=== PATIENT | male | born 1955 | race Caucasian/White ===

== ENCOUNTER 2020-11-24 02:29 | Inpatient (IN) | payer OTHER ==
[2020-11-24] VITALS (20 sets, daily range): BP systolic 96–168; BP diastolic 58–100
[~2020-11-24] VITALS: Ht 180.3 cm; Wt 107.0 kg
[2020-11-24] MEDS ORDERED: LANTUS100 UNIT/M SUBQ (02:46)
[2020-11-24] MEDS ORDERED: MINIPRESS2 MG PO (02:47)
[2020-11-24] MEDS ORDERED: VALIUM2 MG PO (02:47)
[2020-11-24] MEDS ORDERED: ASA81BEC PO (02:48)
[2020-11-24] MEDS ORDERED: PAXIL40 MG PO (02:48)
[2020-11-24] MEDS ORDERED: VALSARTAN320 MG PO (02:49)
[2020-11-24] MEDS ORDERED: OMEPRAZOLE 20 M20 M1 PO (02:49)
[2020-11-24] MEDS ORDERED: LOPRESSOR50 MG PO (02:49)
[2020-11-24 02:53] LABS: ABSOLUTE NEUTROPHILS 4.8 thou/uL (1.4-8.2); BASOPHILS 0.8 % (0.0-2.0); EOSINOPHILS 1.7 % (0.0-3.0); HEMATOCRIT 36.7 % (42.0-52.0); HEMOGLOBIN 12.3 gm/dL (14.0-18.0); MCH 26.7 pg (26.0-34.0); MCHC 33.6 g/dL (28.0-37.0); MCV 79.4 fL (80.0-100.0); MONOCYTES 8.7 % (1.0-8.0); PLATELET COUNT 291 thou/uL (150-400); POLYS 57.8 % (36.0-66.0); RBC 4.62 mil/uL (4.50-6.00); RDW 15.8 % (10.5-14.5); WBC 8.4 thou/uL (4.0-11.0)
[2020-11-24 02:59] LABS: CALCIUM 7.8 mg/dL (8.5-10.1); CREATININE 1.1 mg/dL (0.7-1.3); POTASSIUM 3.1 mmol/L (3.5-5.1)
[2020-11-24 03:09] LABS: ALBUMIN 3.4 g/dL (3.4-5.0); TOTAL BILIRUBIN 0.2 mg/dL (0.2-1.0)
[2020-11-24 03:10] LABS: APTT 24.1 Seconds (24.5-32.8); INR 0.97; PROTIME 10.6 Seconds (10.5-12.1)
[2020-11-24 03:12] LABS: TROPONIN-I 1.99 ng/mL (<0.06)
[2020-11-24] MEDS ORDERED: LIPITOR 20 MG T20 M1 PO (05:50)
[2020-11-24] MEDS ORDERED: VITAMIN D3125 MC2 PO (05:53)
--- NOTE | 2020-11-24 08:24 | NUR ---
PATIENT IS A NEW ADMISSION TO THE UNIT THIS SHIFT. HE ARRIVED VIA BED FROM [facility]. PATIENT IS ALERT AND ORIENTED AND ABLE TO PARTICIPATE IN CARE AND CALL APPROPRIATELY FOR NEEDS. PATIENT IS CURRENTLY ON DOPAMINE AND INTEGRILIN GTTS TO GOOD AFFECT. PATIENTS ONLY COMPLAINT OF PAIN IS CHRONIC IN NATURE. MEDICATIONS RECONCILED WITH ADMISSION MOSTLY COMPLETED. PATIENTS GROIN SITE CLEAN, DRY, AND INTACT WITH NO EVIDENCE OF HEMATOMA. DETAILED REPORT GIVEN TO ONCOMING NURSE.
--- NOTE | 2020-11-24 09:53 | EKG ---
[address] [address] ELECTROCARDIOGRAM REPORT Name: MAX RAMIREZ [place] Room #: 208-P ADM IN M.R.#: [id number] Admission: 11/24/20 Attend Phys: Pk Holland Discharge: Date of : 59 Report #: [id number] [facility] ED Test Date: 2020-11-24 Test Time: 02:35:01 Pat Name: MAX RAMIREZ Department: Room: 208 Gender: M Senior Clinical Data Analyst: JAI : 1955 Requested By: Trevon Call Order Number: [id number] MD: Kain Moore Measurements Intervals [place] Rate: 68 P: 27 IL: 142 QRS: 8 QRSD: 117 T: 81 QT: 412 QTc: 439 Interpretive Statements Sinus rhythm Nonspecific intraventricular conduction delay Inferior infarct, acute (LCx) Compared to ECG 07/01/2007 07:29:16 Intraventricular conduction delay now present Myocardial infarct finding still present Electronically Signed On 11-24-2020 9:52:53 CDT by Kain Moore [email or web address] <ELECTRONICALLY SIGNED> By: Kain Moore MD, [facility] 11/24/20 0952 [phone] Kain Moore MD, [facility] /[facility]
--- NOTE | 2020-11-24 11:56 | 2DMMODE ---
[facility] [place] [address] 2 D/M-MODE ECHOCARDIOGRAM Name: JAMESMAX Vides Room #: 208-P ADM IN M.R.#: [id number] Admission: 11/24/20 Attend Phys: Pk Holland Discharge: Date of : 59 Report #: [id number] THIS REPORT FOR: cc: Gigi Rosas MD, William R. MD Lammoglia, Francisco J. MD ~ APPROVED REPORT Study performed: 11/24/2020 07:43:49 EXAM: Comprehensive 2D, Doppler, and color-flow Echocardiogram Patient Location: Bedside Room #: 208 Status: on-call BSA: 0.86 HR: 58 bpm BP: 128/82 mmHg Rhythm: NSR Other Information Study Quality: Adequate Technically limited study due to inability to position patient post cath. Indications Diabetes CAD Hypertension/HDD STEMI, HLD 2D Dimensions RVDd: 31.15 mm IVSd: 13.01 (7-11mm) LVOT Diam: 18.45 (18-24mm) LVDd: 54.22 mm PWd: 14.16 (7-11mm) Ascending Ao: 33.12 (22-36mm) LVDs: 42.38 (25-40mm) Aortic Root: 30.76 mm IVC: 16.00 mm Volumes Left Atrial Volume (Systole) Single Plane 4CH: 56.86 mL Single Plane 2CH: 58.55 mL LA ESV Index: 76.00 mL/m2 Aortic Valve [facility] [address] [place] [address] 2 D/M-MODE ECHOCARDIOGRAM Name: MAX RAMIREZ Room #: 208-P [facility] IN ..#: [id number] Admission: 11/24/20 Attend Phys: Pk Al Discharge: Date of : 59 Report #: [id number] AoV Peak Reece.: 1.18 m/s AO Peak Gr.: 5.55 mmHg LVOT Max P.00 mmHg LVOT Max V: 1.00 m/s DARY Vmax: 2.27 cm2 Mitral Valve E/A Ratio: 2.0 MV Decel. Time: 280.18 ms MV E Max Reece.: 0.90 m/s MV A Reece.: 0.44 m/s MV PHT: 81.25 ms IVRT: 114.19 ms Pulmonary Valve PV Peak Reece.: 0.92 m/s PV Peak Gr.: 3.40 mmHg Pulmonary Vein P Vein S: 0.43 m/s P Vein A: 0.24 m/s P Vein D: 0.54 m/s P Vein A Dur.: 138.4 msec P Vein S/D Ratio: 0.80 Tricuspid Valve RAP Estimate: 5.00 mmHg Left Ventricle The left ventricle is normal size. Mild to moderate concentric left ventricular hypertrophy. The left ventricular systolic function is normal. The left ventricular ejection fraction is within the normal range. LVEF is 55-60%. The left ventricular diastolic function is normal. Right Ventricle The right ventricle is normal size. The right ventricular systolic function is normal. Atria Left atrium is dilated. The right atrium size is normal. Aortic Valve The aortic valve is normal in structure. No aortic regurgitation is present. There is no aortic valvular stenosis. Mitral Valve The mitral valve is normal in structure. Mild to moderate mitral regurgitation. No evidence of mitral valve stenosis. [facility] [address] [place] [address] 2 D/M-MODE ECHOCARDIOGRAM Name: JAMESMAX M Room #: 208-P [facility] IN M.R.#: [id number] Admission: 11/24/20 Attend Phys: Pk Al Discharge: Date of : 59 Report #: [id number] Tricuspid Valve The tricuspid valve is normal in structure. Trace tricuspid regurgitation. Unable to assess PA pressure. Pulmonic Valve The pulmonary valve is normal in structure. Trace pulmonic regurgitation. Great Vessels The aortic root is normal in size. IVC is normal in size and collapses >50% with inspiration. Pericardium There is no pericardial effusion. <Conclusion> The left ventricle is normal size. Mild to moderate concentric left ventricular hypertrophy. LVEF is 55-60%. Left atrium is dilated. The aortic valve is normal in structure. The mitral valve is normal in structure. Mild to moderate mitral regurgitation. The tricuspid valve is normal in structure. Trace tricuspid regurgitation. Unable to assess PA pressure. The pulmonary valve is normal in structure. Trace pulmonic regurgitation. The aortic root is normal in size. There is no pericardial effusion. <ELECTRONICALLY SIGNED> By: Oleg Zazueta MD 11/24/20 1156 1156 1156 Oleg Zazueta MD /INF
[2020-11-24 12:31] LABS: CHOLESTEROL 146 mg/dL (<200); HDL CHOLESTEROL 26 mg/dL (>40); LDL CHOLESTEROL 62 mg/dL (<100); TC:HDL 5.6 Ratio (Not establshd); TRIGLYCERIDE 292 mg/dL (<150); VLDL 58 mg/dL (<40)
--- NOTE | 2020-11-24 17:19 | NUR ---
RECEIVED THE PATIENT CONSICOUS AND ORIENTED.NOT IN PAIN OR DISTRESS.WITH ONGOING INTEGRILLIN AND NITROGLYERIN DRIP.WITH RIGHT GROIN C/D/I.COMPLAINED OF HEMORRHOID AND HAD MINIMAL BLEEDING WHEN HE WENT TO THE BATHROOM, SEEN BY DR. ROY, ACCORDING TO HIM TO CONTINUE INTEGRIILIN.INFORMED DR. ROY WELL OF THE HIGH TROPONIN RESULT.ALL NEEDS ATTENDED.
[2020-11-25 04:29] VITALS: BP 116/72
--- NOTE | 2020-11-25 05:14 | NUR ---
Patient making slow progress towards outcome goals. Vutal signs and rhythm stable. No chest pains, did have some left arm pain that is now gone. Integrillin at 2 mcg/kg/min at17 ml/hr and Nitro drip at 16 ml/hr. Right groin soft, dressing dry and intact. Awaiting consult with Dr. Mina. Up to bathroom with standby assist with out difficulty.
[2020-11-25 05:36] LABS: GLYCOHEMOGLOBIN (HGB A1C) 6.1 % (4.8-5.6)
[2020-11-25 06:02] LABS: ALBUMIN 3.5 g/dL (3.4-5.0); ANION GAP 9 mmol/L (7-16); BUN 14 mg/dL (7-18); CALCIUM 8.7 mg/dL (8.5-10.1); CHLORIDE 104 mmol/L (98-107); CHOLESTEROL 138 mg/dL (<200); CO2 27 mmol/L (21-32); GLUCOSE 101 mg/dL (74-106); HDL CHOLESTEROL 30 mg/dL (>40); LDL CHOLESTEROL 73 mg/dL (<100); SGOT 60 U/L (15-37); SGPT 26 U/L (30-65); SODIUM 140 mmol/L (136-145); TC:HDL 4.6 Ratio (Not establshd); TOTAL BILIRUBIN 0.4 mg/dL (0.2-1.0); TOTAL PROTEIN 6.7 g/dL (6.4-8.2); TRIGLYCERIDE 178 mg/dL (<150); VLDL 36 mg/dL (<40)
[2020-11-25 06:03] LABS: SERUM ASSESSMENT Clear
[2020-11-25 07:48] VITALS: BP 103/70
[2020-11-25 11:59] VITALS: BP 96/63
[2020-11-25 15:31] VITALS: BP 114/68
--- NOTE | 2020-11-25 16:37 | NUR ---
PT IS AXOX4, PLEASANT. VSS, AFEBRILE, SR ON THE MONITOR. PT HAD INTEGRILIN AND NITRO GTT THIS AM. DR PANDYA CONSULTED, DR ROY CONSULTED. DISCUSSED CAREPLAN WITH PT. INTEGRILIN D/C THIS PM. WILL D/C NITRO IN AM AFTER 1ST DOSE IMDUR PER NURSING NOTES. PT DENIES CP, BUT HAS HAD SOME SHOULDER/NECK PAIN. POC IS TO CONTINUE WITH GTTS UNTIL D/C, CONTROL HEADACHES AND ADDITIONAL PAIN WITH RX. LOW FALL PRECAUTIONS IN PLACE. NO CONCERNS AT THIS TIME.
[2020-11-25 19:45] VITALS: BP 139/74
[2020-11-26 03:20] VITALS: BP 113/73
--- NOTE | 2020-11-26 04:50 | NUR ---
SLEPT PART OF SHIFT. UP AD CRISTIANE IN ROOM WITHOUT COMPLAINTS OF CHEST PAIN OR SHORTNESS OF AIR. REMAINS ON NTG GTT. WORKING ON GOALS AND PLAN OF CARE FOR NOC. CONTINUE TO ASSES.
[2020-11-26 08:00] VITALS: BP 108/64
[2020-11-26 12:00] VITALS: BP 131/71
[2020-11-26 15:55] VITALS: BP 130/74
--- NOTE | 2020-11-26 19:40 | NUR ---
PT IS AXOX4, PLEASANT. VSS, AFEBRILE, SR ON MONITOR. NITRO GTT STOPPED WITH FIRST IMDUR DOSE PER DR PANDYA ORDERS. DR CARRANZA CONSULTED. MRSA SWAB OBTAINED. POC TO CONTINUE TO ASSESS CARDIOLOGY. POSS D/C 11/27. LOW FALL PRECAUTIONS IN PLACE. NO CONCERNS AT THIS TIME.
[2020-11-26 19:46] VITALS: BP 132/75
[2020-11-27 04:29] VITALS: BP 139/80
--- NOTE | 2020-11-27 04:38 | NUR ---
SLEPT PART OF SHIFT. SNACK GIVEN AT 0320 PER REQUEST. UP AD CRISTIANE IN ROOM WITH STEADY GAIT. DENIES COMPLAINTS OF CHEST PAIN OR SHORTNESS OF AIR THIS SHIFT. STATES HEADACHES ARE GONE. WEANED OFF O2 AT THIS TIME WITH O2 SAT 92% ON RA. PROGRESSING TOWARDS DISCHARGE GOALS SLOWLY. CONTINUE TO ASSES CLOSELY.
--- NOTE | 2020-11-27 07:55 | NUR ---
ASSUMED CARE OF PT AT 0700
[2020-11-27 08:09] VITALS: BP 114/89
[2020-11-27 11:38] VITALS: BP 116/69
[2020-11-27] MEDS ORDERED: CLOPIDOGREL75 MG PO (12:34)
[2020-11-27] MEDS ORDERED: IMDUR 30 MG TAB30 M1 PO (12:34)
[2020-11-27] MEDS ORDERED: ADULT LOW DOSE81 MG PO (12:35)
[2020-11-27] MEDS ORDERED: COZAAR 25 MG TA25 M1 PO (12:38)
[2020-11-27 13:28] VITALS: BP 116/69
[2020-11-27 14:02] LABS: ABSOLUTE NEUTROPHILS 5.1 thou/uL (1.4-8.2); BASOPHILS 0.8 % (0.0-2.0); EOSINOPHILS 2.4 % (0.0-3.0); HEMATOCRIT 30.4 % (42.0-52.0); HEMOGLOBIN 10.1 gm/dL (14.0-18.0); LYMPHOCYTES 26.2 % (24.0-44.0); MCH 26.6 pg (26.0-34.0); MCHC 33.2 g/dL (28.0-37.0); MONOCYTES 8.9 % (1.0-8.0); PLATELET COUNT 290 thou/uL (150-400); POLYS 61.7 % (36.0-66.0); RDW 15.8 % (10.5-14.5); WBC 8.3 thou/uL (4.0-11.0)
[2020-11-27 14:09] LABS: CALCIUM 8.9 mg/dL (8.5-10.1); CREATININE 1.3 mg/dL (0.7-1.3); POTASSIUM 4.1 mmol/L (3.5-5.1)
[2020-11-27 14:14] LABS: URINE BILIRUBIN NEGATIVE (Negative); URINE BLOOD NEGATIVE (Negative); URINE CLARITY CLEAR; URINE COLOR YELLOW; URINE GLUCOSE-RANDOM* NEGATIVE (Negative); URINE KETONES NEGATIVE (Negative); URINE LEUKOCYTES-REFLEX NEGATIVE (Negative); URINE NITRITE-REFLEX NEGATIVE (Negative); URINE PROTEIN (DIPSTICK) NEGATIVE (Negative); URINE SPECIFIC GRAVITY <= 1.005 (1.005-1.035); URINE UROBILINOGEN 0.2 E.U./dl (0.2-1.0)
[2020-11-27 14:21] LABS: APTT 25.4 Seconds (24.5-32.8); INR 0.97; PROTIME 10.6 Seconds (10.5-12.1)
[2020-11-27 14:24] LABS: ALBUMIN 3.4 g/dL (3.4-5.0); TOTAL BILIRUBIN 0.2 mg/dL (0.2-1.0); TOTAL PROTEIN 7.3 g/dL (6.4-8.2)
--- NOTE | 2020-11-27 15:42 | HC ---
[facility] [place] [address] CONSULTATION Name: MAX RAMIREZ Room #: 208-P [facility] IN M.R.#: [id number] Admission: 11/24/20 Attend Phys: Pk [place] Discharge: 11/27/20 Date of : 59 Report #: [id number] THIS REPORT FOR: cc: Gigi Rosas MD, William R. MD Forman, John M. MD ~ DOC #: [id number] Pradeep Serrano MD DATE OF SERVICE: 11/26/2020 HISTORY OF PRESENT ILLNESS: We were asked to see the patient to discuss coronary artery bypass surgery. The patient is a 65-year-old with a history of coronary artery disease and stents in 2007. The patient was admitted on 11/23/2020 with chest pain. The patient states that he has chronic anxiety related to posttraumatic stress and he was out of the Valium that he takes for this. When he removed the Valium prescription, the patient had persistent chest tightness and this then was identified as unstable angina, chest tightness radiated to jaws, back, arms and was associated with shortness of breath. The patient was brought to the Emergency Department and cardiac catheterization was done. High-grade circumflex lesion was seen and this was angioplastied, but a stent was not placed. The patient also had mild disease and moderate stenoses in right coronary and LAD. Transthoracic echo was done. Ejection fraction is 55-60% with no important valve disease. PAST HISTORY: Significant for diabetes mellitus. The patient states he was diagnosed with diabetes in 05/2020 when his blood glucose was 1000. ALLERGIES: The patient states he is allergic to METALS. MEDICATIONS: At home Valium, omeprazole, valsartan, atorvastatin, vitamin D, insulin, Minipress, paroxetine, aspirin, metoprolol. Past history as mentioned, diabetes mellitus, hypertension, coronary artery disease, posttraumatic stress. REVIEW OF SYSTEMS: GENERAL: In general, the patient states he is a healthy fellow. Otherwise general, denies fever, weight change. EYES: Denies change in vision. HENT: Denies headache, earache, sinus problems. RESPIRATORY: Denies shortness of breath or cough. CARDIAC: No palpitations. [facility] [address] [place] [address] CONSULTATION Name: MAX RAMIREZ Room #: 208-P [facility] IN M.R.#: [id number] Admission: 11/24/20 Attend Phys: Pk Holland Discharge: 11/27/20 Date of : 59 Report #: [id number] GASTROINTESTINAL: Denies nausea, vomiting blood. GENITOURINARY: Denies urgency, frequency blood. MUSCULOSKELETAL: Denies bone or joint pain. SKIN: Denies rash or infection. NEUROLOGIC: Denies motor or sensory dysfunction. ENDOCRINE: Denies goiter, tremor. PSYCHIATRIC: As mentioned posttraumatic stress managed with diazepam, manifest by anxiety. PHYSICAL EXAMINATION: GENERAL: The patient is lying in bed, appears comfortable. VITAL SIGNS: Temperature 36.6, heart rate 62, respiratory rate 18, blood pressure 108/64, pulse ox 95 on 3 liters. HEENT: No scleral icterus. No arcus. NECK: No mass. I hear no bruit. CHEST: Clear to auscultation. HEART: Rhythm regular, no murmur. ABDOMEN: Soft. EXTREMITIES: No clubbing, cyanosis or edema. Strong dorsalis pedis pulses bilaterally. No obvious saphenous vein problems. SKIN: No rash or infection. MUSCULOSKELETAL: No obvious bone or joint asymmetry or deformity. NEUROLOGIC: No obvious motor or sensory dysfunction. Moves all extremities without impediment. PSYCHIATRIC: Oriented x3, pleasant, and appropriate. ASSESSMENT AND PLAN: The patient has coronary artery disease. We note that circumflex was angioplastied and the patient is currently on Plavix. My preference would be, if surgery is thought necessary, to have the patient return for surgery later. Typically, we would like to stop Plavix for at least 4 days prior to surgery in view of the recent angioplasty may be prudent to wait a month or so before stopping the Plavix, however, similar to what we used to doing the "bare metal stent days." In any event, I will discuss this with cardiology. Thank you for the consult. Pradeep Serrano MD JF/ALAINA [address] [address] CONSULTATION Name: MAX RAMIREZ Room #: 208-P DIS IN M.R.#: [id number] Admission: 11/24/20 Attend Phys: Pk Holland Discharge: 11/27/20 Date of : 59 Report #: [id number] <ELECTRONICALLY SIGNED> By: Pradeep Serrano MD 11/27/20 1542 0 0831 Pradeep Serrano MD /nt
[2020-11-27 23:06] LABS: GLYCOHEMOGLOBIN (HGB A1C) 6.1 % (4.8-5.6)
--- NOTE | 2020-12-20 10:43 | CATHLAB ---
[facility] [address] [place] [address] INVASIVE PROCEDURE REPORT Name: MAX RAMIREZ Room #: 208-P [facility] IN M.R.#: [id number] Admission: 11/24/20 Attend Phys: Pk Holland Discharge: 11/27/20 Date of : 59 Report #: [id number] THIS REPORT FOR: cc: Gigi Rosas MD, William R. MD Lammoglia, Francisco J. MD ~ APPROVED REPORT Study performed: 11/24/2020 02:55:57 Patient Details Patient Status: ED Room #: The patient is a 65 year-old male Event Personnel Oleg Zazueta Director Retirement, Liza Cunningham RN RN, Brenda Bender RTR ScrubMartín Jordan RTR Monitor Procedures Performed Art Access - R femoral artery* Left Heart Cath w/or w/o Coronaries [id number] [facility] PTCA Single Vessel CIRC [id number] [place] [address] Initial Mod Sed Same Phys/QHP Gr5y 886916 49931 Mod Sed Same Phys/QHP Ea [id number], supervision of conscious sedation Indication STEMI , Chest pain Risk Factors Coronary Artery Disease Previous Procedures/Diagnoses Previous PCI Procedure Narrative The Right Groin^ was infiltrated with 1% Lidocaine subcutaneous anesthesia. A 6FR PINNACLE sheath was inserted into the RFA^. Coronary angiography was performed using coronary diagnostic catheters. The right coronary system was accessed and visualized with a JR4 catheter. The left coronary system was accessed and visualized with a JL4 catheter. The left ventricle was accessed and visualized with a JR4 catheter. Left ventricular/Aortic Valve gradient assessed via catheter pullback. Closure device was deployed with a 6 Fr MYNXGRIP 6/7F #[id number]. Hemostasis was obtained with manual pressure following sheath removal without any complications. The patient [facility] [place] [address] INVASIVE PROCEDURE REPORT Name: MAX RAMIREZ Room #: 208-P [facility] IN ..#: [id number] Admission: 11/24/20 Attend Phys: Pk Al Discharge: 11/27/20 Date of : 59 Report #: [id number] tolerated the procedure well and there were no complications associated with the procedure. There was no hematoma. Intraoperative Conscious Sedation Sedation start time: 320 Case end Time: 0430 Versed 2 mg Morphine: 2 mg Fluoro Time: 13.07 minutes Dose: DAP 60510.90 cGycm2 2469 mGy Contrast Type and Amount: Visipaque 155 ml Coronary Angiography The patient's coronary anatomy is right dominant. Diagnostic Cath Left Main Large-caliber vessel normal origin with a proximal 30% tapering noted. It then bifurcates left into descending left circumflex and is free of high-grade disease LAD Moderate caliber type III vessel which courses in the enteroenteric particular sulcus. The vessel tapers at the origin of the first diagonal branch and is tortuosity and irregular lesions of less than 50% stenosis. This does not appear to be flow-limiting. The vessel continues on in the anterior interventricular sulcus towards the apex with nonobstructive plaquing noted and terminates in the posterior inferoapical wall is a bifurcating vessel Diagonal 1 Small caliber vessel with a proximal 40 to 50% lesion it then reconstitutes continues on the anterolateral wall without high-grade lesion Diagonal 2 Small caliber vessel with a proximal lesion of less than 30% continues and without high-grade lesions. Circumflex Large-caliber vessel and rapidly bifurcates into the first marginal branch and continuation of the circumflex. At this origin of the circumflex there is a 180 degree bend in the circumflex proper with an eccentric lesion of approximately 60+ percent and then the branches arise. First marginal branch is moderate caliber coursing lateral aspect of the heart without high-grade lesions. The continuation of the circumflex and has a subtotal lesion with thrombus prior to the origin of the second marginal branch and the terminal posterior wall portion of the circumflex OM1 Small caliber vessel without high-grade lesions noted only mild luminal irregularities OM2 Small caliber vessel without high-grade lesions coursing on the posterior lateral wall of the left ventricle OM3 Diminutive sized posterior wall branch vessel [facility] [address] [place] [address] INVASIVE PROCEDURE REPORT Name: MAX RAMIREZ Room #: 208-P [facility] IN M.R.#: [id number] Admission: 11/24/20 Attend Phys: Pk Al Discharge: 11/27/20 Date of : 59 Report #: [id number] Right Coronary Moderate caliber vessel normal origin with proximal stent having approximately 50% restenosis. The vessel and continues on with as several as 50% concentric lesions noted prior to the crux of the heart. Posterior ascending artery arises and is patent with irregularities noted of less than 30% R PDA Moderate caliber vessel without high-grade lesions but tortuous in its course within the posterior interventricular sulcus Left Ventriculography Left Ventriculography was not performed. Hemodynamics The aortic pressure is 161/97 mmHg with a mean of 123 mmHg. The left ventricular pressure is 154/18 mmHg with a mean of mmHg. The left ventricular end diastolic pressure is 37 mmHg. Pullback from the left ventricle to the aorta revealed a mm gradient across the aortic valve. PCI Technique After termination proceeding with acute intervention was made the diagnostic system was exchanged for a Andrés left 4 curved guide catheter. This was engaged the left coronary ostium. A 0.014 wire was then advanced through the tortuosity proximally and distal to the lesion. A 2.5 mm stent was then attempted to be deployed but was unable to make the turn at the origin of the circumflex. That the stent was then removed and a PCI balloon was then advanced in position across the lesion and developed Tatian was performed as per noted in the log. Multiple inflations were performed with satisfactory PCI results. Attempted deployment of a small length stent was then carried forth which was unable to be deployed secondary to the proximal 180 degree bend. Repeat insertion of the balloon was then carried forth multiple inflations were then performed with satisfactory results of less than 30%. Flow was brisk intracoronary nicardipine was utilized and wire removed. Final picture demonstrated a less than 10% residual and a successful PCI PCI Technique Lesion Percutaneous coronary intervention was performed on the mid circumflex artery segment. A VISTA 6FR JL4 #[id number] Guide Catheter was used to engage the ostium. A Luge Wire .014 x 182CM #[id number] Interventional Guidewire was used to cross the lesion. BALLOON DILATION A Balloon catheter Sprinter OTW 2.5 x 15 #[id number] was inserted and [facility] [address] [place] [address] INVASIVE PROCEDURE REPORT Name: JAMESMAX Rodriguez Room #: 208-P [facility] IN M.R.#: [id number] Admission: 11/24/20 Attend Phys: Pk Al Discharge: 11/27/20 Date of : 59 Report #: [id number] inflated up to 12.00atm for 61seconds. Additional Inflation: 12.00atm for 60seconds. Additional Inflation: 14.00atm for 66seconds. Conclusion 1. Coronary disease three-vessel moderate with high-grade subtotal left circumflex 2. Successful PCI of the mid left circumflex with less than 30% residual 3. Abnormal hemodynamics elevated (diastolic pressures Recommendations Cardiac Risk Reduction Program Medical Therapy Discussed with patient possible consideration for surgical revascularization view of the RCA and LAD lesion but will discuss this as an outpatient if asymptomatic. If symptoms persist then a CBG would be appropriate. <ELECTRONICALLY SIGNED> By: Oleg Zazueta MD 12/20/20 1042 41 41 Oleg Zazueta MD /INF
== END 2020-11-27 15:30 | disposition home or self-care (01) | DRG 250 ==
LOC: ER 02:29 → 2N 03:05 → EROBS 03:05 → 2N 05:14
PROVIDERS: Emergency Medicine; Internal Medicine; Nurse Practitioner Family; Surgery Vascular Surgery; ADMIT Hospitalist; ATTEND Hospitalist
DX: I21.19 ST elevation (STEMI) myocardial infarction involving other coronary artery of inferior wall (principal); I50.31 Acute diastolic (congestive) heart failure; K62.5 Hemorrhage of anus and rectum; K64.9 Unspecified hemorrhoids; F43.10 Post-traumatic stress disorder, unspecified; I25.10 Atherosclerotic heart disease of native coronary artery without angina pectoris; F41.9 Anxiety disorder, unspecified; E11.9 Type 2 diabetes mellitus without complications; E78.5 Hyperlipidemia, unspecified; I10 Essential (primary) hypertension; Z20.822 Contact with and (suspected) exposure to COVID-19; Z79.4 Long term (current) use of insulin; Z79.82 Long term (current) use of aspirin; Z79.899 Other long term (current) drug therapy; I25.2 Old myocardial infarction
CPT/HCPCS: 10081